=== PATIENT | male | born 1985 | race African-American/Black ===

== ENCOUNTER 2023-04-21 14:44 | Emergency (ER) | payer OTHER ==
[2023-04-21] MEDS ORDERED: Acetaminophen 500 MG TAB ONE (15:56)
[2023-04-21 16:45] LABS: SARS-CoV-2 E Target Negative; SARS-CoV-2 N2 Target Negative; SARS-CoV-2 NAA Rapid Test Not Detected (NotDetected); SARS-CoV-2 RdRP gene Negative
== END 2023-04-21 16:45 | disposition home or self-care (01) ==
LOC: EDSEX 14:44 → MADERS 14:44
DX: J06.9 Acute upper respiratory infection, unspecified (principal)
CPT/HCPCS: 87804; 99283; U0002